=== PATIENT | female | born 1990 | race Caucasian/White ===

== ENCOUNTER 2019-12-06 15:00 | Emergency (ER) | payer SELFPAY ==
[~2019-12-06] VITALS: Ht 157.5 cm; Wt 66.4 kg
[2019-12-06 15:21] VITALS: Ht 157.5 cm; Wt 66.4 kg
[2019-12-06] MEDS ORDERED: PENICILLIN V P500 MG PO (16:23)
[2019-12-06 16:28] VITALS: BP 113/72
== END 2019-12-06 16:31 | disposition home or self-care (01) ==
LOC: D.ER 15:00
DX: K08.89 Other specified disorders of teeth and supporting structures (principal); S03.2XXA Dislocation of tooth, initial encounter; K04.7 Periapical abscess without sinus; Z72.0 Tobacco use